=== PATIENT | female | born 1975 ===

== ENCOUNTER 2017-01-21 10:47 | Emergency (ER) | payer SELFPAY ==
[2017-01-21 11:04] VITALS: RESP 16; O2SAT 98
--- NOTE | 2017-01-21 11:45 | C.PDOC ---
History Of Present Illness 41yo female, presents to ED for evaluation of rashes to her bilateral forearms, present for the past 2 days. 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 Patient states she took 2 doses of 50mg Benadryl yesterday with no relief. She denies any fever, chills, throat swelling, mouth swelling. No other complaints. Time Seen by Provider: 01/21/17 11:20 Chief Complaint (Nursing): Abnormal Skin Integrity History Per: Patient History/Exam Limitations: no limitations Onset/Duration Of Symptoms: Days (2) Location Of Injury: Right: Forearm, Left: Forearm, Anterior: Forearm Quality Of Symptoms: Painful, Itching Recent travel outside of the [place]: No Additional History Per: Patient Past Medical History Reviewed: Historical Data, Nursing Documentation, Vital Signs Vital Signs: Last Vital Signs Temp 98.1 F 01/21/17 11:02 Pulse 85 01/21/17 11:02 Resp 16 01/21/17 11:02 BP 121/83 01/21/17 11:02 Pulse Ox 98 01/21/17 12:35 - Medical History PMH: No Chronic Diseases Surgical History: No Surg Hx Family History: States: No Known Family Hx - Social History Hx Alcohol Use: No Hx Substance Use: No - Immunization History Hx Tetanus Toxoid Vaccination: No Hx Influenza Vaccination: No Hx Pneumococcal Vaccination: No Review Of Systems Except As Marked, All Systems Reviewed And Found Negative. Constitutional: Negative for: Fever, Chills ENT: Negative for: Mouth Swelling, Throat Swelling Skin: Positive for: Rash (itching, painful rash to bilateral forearms) Physical Exam - Physical Exam Appears: Non-toxic, No Acute Distress Skin: Warm, Rash (erythematous, warm raised urticaria noted to bilateral forearms. ) Eye(s): bilateral: Normal Inspection Nose: Normal Oral Mucosa: Moist Throat: Normal Neck: Normal Cardiovascular: Rhythm Regular Respiratory: Normal Breath Sounds ED Course And Treatment O2 Sat by Pulse Oximetry: 98 (RA) Pulse Ox Interpretation: Normal Medical Decision Making Medical Decision Making: Impression: Contact dermatitis vs. allergic reaction Plan: -- Benadryl PO -- Prednisone PO Disposition Counseled Patient/Family Regarding: Diagnosis, Need For Followup, Rx Given - Disposition Referrals: [facility] [Outside] Disposition: HOME/ ROUTINE Disposition Time: 12:31 Condition: STABLE Additional Instructions: [facility] con [facility]. Prescriptions: DiphenhydrAMINE [Benadryl] 50 mg PO BID #6 cap Prednisone [Deltasone] 60 mg PO DAILY #9 tablet Instructions: Contact Dermatitis (ED) Forms: Gen Discharge Inst Ukrainian, General Discharge Instructions, [facility] (Ukrainian), Work Excuse - POA Present On Arrival: None - Clinical Impression Clinical Impression: Skin irritation, Contact dermatitis - Scribe Statement The provider has reviewed the documentation as recorded by the Joanna Troy Provider Attestation: All medical record entries made by the Joanna were at my direction and personally dictated by me. I have reviewed the chart and agree that the record accurately reflects my personal performance of the history, physical exam, medical decision making, and the department course for this patient. I have also personally directed, reviewed, and agree with the discharge instructions and disposition.
[2017-01-21 12:42] VITALS: BP 112/80; PULSE 76; TEMP 98
== END 2017-01-21 12:49 | disposition home or self-care (01) ==
LOC: C.ER 10:47
DX: L25.9 Unspecified contact dermatitis, unspecified cause (principal)